=== PATIENT | female | born 1955 | race Caucasian/White ===

== ENCOUNTER 2019-09-06 14:05 | Outpatient (CLI) | payer MEDICARE, SELFPAY ==
--- NOTE | 2019-09-06 | XR_ITS ---
WS: [id number] SHOULDER LEFT TECHNIQUE: 3 views of the left shoulder CLINICAL INFORMATION: AFTERCARE FOLLOWING LEFT SHOULDER JOING REPLACEMENT SURGERY COMPARISON: None. FINDINGS: Normal acromioclavicular joint. Reversed left total shoulder arthroplasty. No dislocation. Hardware a ppears well seated. XR/XR shoulder LT min 2V* [id number] IMPRESSION: Reversed left total shoulder arthroplasty appears in good position.
== END 2019-09-06 14:06 | disposition home or self-care (01) ==
LOC: RADOUTREAD 09-09 07:34
PROVIDERS: Family Provider Family Medicine; Visit Provider Nurse Practitioner Family
DX: Z76.89 Persons encountering health services in other specified circumstances (principal)

== ENCOUNTER 2019-09-26 13:05 | Outpatient (CLI) | payer MEDICARE, SELFPAY ==
--- NOTE | 2019-09-26 | XR_ITS ---
WS: [id number] WRIST LEFT TECHNIQUE: 4 views of the left wrist CLINICAL INFORMATION: LEFT HAND/WRIST PAIN/SWELLING COMPARISON: None. FINDINGS: Diffuse osteopenia. 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 Mild narrowing of the radiocarpal j oint. Scaphoid appears normal in appearance. Slight irregularity distal radius suspicious for nondisp laced fracture. Recommend interval follow-up. XR/XR wrist LT w scaphoid [id number] IMPRESSION: Advanced osteopenia with slight irregularity distal radius near the radial styl oid suspicious for nondisplaced fracture. Recommend interval follow-up.
--- NOTE | 2019-09-26 | US_ITS ---
WS: [id number] LEFT UPPER EXTREMITY VENOUS ULTRASOUND EXAMINATION CLINICAL INFORMATION: LEFT HAND PAIN COMPARISON: None. FINDINGS: The left internal jugular, subclavian, and axillary veins are patent and free of thrombus. The visual ized left brachiocephalic veins is patent. The brachial, basilic, and cephalic veins are patent and c ompressible. US/ROR venous duplex UE LT IMPRESSION: No evidence of left upper extremity thrombus.
== END 2019-09-26 13:06 | disposition home or self-care (01) ==
LOC: RADOUTREAD 13:54
PROVIDERS: Family Provider Family Medicine; Visit Provider Nurse Practitioner Family
DX: Z76.89 Persons encountering health services in other specified circumstances (principal)

== ENCOUNTER 2021-08-10 14:24 | Outpatient (CLI) | payer MEDICARE, SELFPAY ==
--- NOTE | 2021-08-10 14:34 | XR_ITS ---
WS: [id number] Bone mineral density performed on a [employer], 08/10/2021 Clinical data: OSTEOPOROSIS, POST MENOPAUSAL Comparison study: DEXA scan, 08/16/2017. Findings: The first 4 lumbar vertebral bodies demonstrated the bone mineral density of 0.926 g/cm2 for a young adult T score of -2.1. The bone mineral density of the lumbar spine increased compared to the prior study. Measurement of the right hip reveals the bone mineral density of 0.778 g/sq cm for young adult T scor e of -1.8. The bone mineral density of the right hip increased compared to the prior study. XR/XR DEXA axial skeleton* [id number] Impression: Osteopenia of the lumbar spine and right hip.
== END 2021-08-10 14:25 | disposition home or self-care (01) ==
PROVIDERS: PCP Family Medicine; Visit Provider Nurse Practitioner Family
DX: M81.0 Age-related osteoporosis without current pathological fracture (principal); Z78.0 Asymptomatic menopausal state; M85.89 Other specified disorders of bone density and structure, multiple sites
CPT/HCPCS: 77080

== ENCOUNTER → 2021-11-29 10:49 | Outpatient (BNVA) | payer MEDICARE, SELFPAY | PROVIDERS: PCP Family Medicine; Referring Provider Nurse Practitioner Family; Visit Provider Otolaryngology | DX: R49.0 Dysphonia (principal); K21.9 Gastro-esophageal reflux disease without esophagitis; M26.623 Arthralgia of bilateral temporomandibular joint; J44.9 Chronic obstructive pulmonary disease, unspecified; K44.9 Diaphragmatic hernia without obstruction or gangrene; Z87.891 Personal history of nicotine dependence | CPT/HCPCS: 31575; 99204 ==

== ENCOUNTER → 2022-09-19 13:34 | Outpatient (BNVA) | payer MEDICARE, SELFPAY | PROVIDERS: PCP Family Medicine; Visit Provider Podiatrist Foot & Ankle Surgery | DX: M20.41 Other hammer toe(s) (acquired), right foot (principal); M20.42 Other hammer toe(s) (acquired), left foot; M20.12 Hallux valgus (acquired), left foot | CPT/HCPCS: 73630; 99204 ==

== ENCOUNTER → 2022-12-20 13:59 | Outpatient (BNVA) | payer MEDICARE, SELFPAY | PROVIDERS: PCP Family Medicine; Visit Provider Dermatology | DX: L50.8 Other urticaria (principal); L02.12 Furuncle of neck; D69.2 Other nonthrombocytopenic purpura; L81.4 Other melanin hyperpigmentation; D48.5 Neoplasm of uncertain behavior of skin; H16.229 Keratoconjunctivitis sicca, not specified as Sjogren's, unspecified eye; K11.7 Disturbances of salivary secretion | CPT/HCPCS: 99214 ==

== ENCOUNTER 2023-05-23 14:29 | Outpatient (CLI) | payer MEDICARE, SELFPAY ==
[2023-05-25 15:28] LABS: Anti-Double Strand DNA AB <1 IU/mL; Jo-1 Antibody <1.0 NEG AI (<1.0 NEG); SM/RNP Antibodies <1.0 NEG AI (<1.0 NEG); SS-B/LA IGG <1.0 NEG AI (<1.0 NEG); Scleroderma Ab(Scl-70) Ab <1.0 NEG AI (<1.0 NEG); Ss-A/Ro Igg <1.0 NEG AI (<1.0 NEG)
== END 2023-05-23 14:30 | disposition home or self-care (01) ==
PROVIDERS: PCP Nurse Practitioner Family; Visit Provider Dermatology
DX: Z01.89 Encounter for other specified special examinations (principal)
CPT/HCPCS: 36415; 86225; 86235; 99214

== ENCOUNTER 2024-02-01 15:42 | Outpatient (CLI) | payer MEDICARE, SELFPAY ==
--- NOTE | 2024-02-01 15:47 | CTR_ITS ---
PROCEDURE INFORMATION: Exam: CT Chest Without Contrast; Diagnostic Exam date and time: 02/01/2024 3:56 PM Age: 68 years old Clinical indication: Condition or disease; Lung condition and disease; Asthma; Additional info: Unspecified asthma, uncomplicated TECHNIQUE: Imaging protocol: Diagnostic computed tomography of the chest without contrast. Radiation optimization: All CT scans at this facility use at least one of these dose optimization techniques: automated exposure control; mA and/or kV adjustment per patient size (includes targeted exams where dose is matched to clinical indication); or iterative reconstruction. COMPARISON: CR XR chest 2V* [id number] 12/02/2020 3:41 PM RADIATION DOSE METRICS: Total DLP (mGy-cm): 482.27 FINDINGS: Lungs: 4 mm smoothly marginated nodule in the right lower lobe (4-32). Minimal atelectasis or fibrosis at each lung base. Pleural spaces: Unremarkable. No pneumothorax. No pleural effusion. Heart: Unremarkable. No cardiomegaly. No pericardial effusion. Lymph nodes: Visible central lymph nodes are not pathologically enlarged. Vasculature: Unremarkable. No aortic aneurysm. Diaphragm: Large hiatal hernia. Spleen: 12 cm sport aligned splenomegaly. Bones/joints: Bilateral shoulder replacement. Soft tissues: Unremarkable. CT/CT chest wo con [id number] IMPRESSION: 1. No acute intrathoracic pathology. 2. Large hiatal hernia. 3. 4 mm right lower lobe pulmonary nodule. For patients at low risk (minimal or absent history of smoking and of other known risk factors), no routine follow-up is indicated. For patients at high risk (history of smoking or of other known risk factors), consider optional CT Chest at 12 months. (Reference: Sudeep) References: Sudeep Benito et al. Guidelines for Management of Incidental Pulmonary Nodules Detected on CT Images: From the Fleischner Society 2017. Radiology. 2017;284(1):228-243.
== END 2024-02-01 15:43 | disposition home or self-care (01) ==
PROVIDERS: PCP Nurse Practitioner Family; Visit Provider Student in an Organized Health Care Education/Training Program
DX: J45.909 Unspecified asthma, uncomplicated (principal); R91.1 Solitary pulmonary nodule; K44.9 Diaphragmatic hernia without obstruction or gangrene; R16.1 Splenomegaly, not elsewhere classified; Z96.611 Presence of right artificial shoulder joint; Z96.612 Presence of left artificial shoulder joint
CPT/HCPCS: 71250

== ENCOUNTER → 2024-05-23 13:35 | Outpatient (BNVA) | payer MEDICARE, SELFPAY | PROVIDERS: PCP Nurse Practitioner Family; Visit Provider Nurse Practitioner Family | DX: L50.8 Other urticaria (principal); L40.8 Other psoriasis; L02.12 Furuncle of neck; S20.309A Unspecified superficial injuries of unspecified front wall of thorax, initial encounter; X58.XXXA Exposure to other specified factors, initial encounter; K11.7 Disturbances of salivary secretion; D69.2 Other nonthrombocytopenic purpura | CPT/HCPCS: 99214 ==

== ENCOUNTER → 2025-05-29 15:33 | Outpatient (BNVA) | payer MEDICARE, SELFPAY | PROVIDERS: PCP Nurse Practitioner Family; Visit Provider Nurse Practitioner Family | DX: L50.8 Other urticaria (principal); L40.8 Other psoriasis; L73.9 Follicular disorder, unspecified; L81.4 Other melanin hyperpigmentation | CPT/HCPCS: 99214 ==

== ENCOUNTER 2025-08-05 13:35 | Outpatient (CLI) | payer MEDICARE, SELFPAY ==
[2025-08-05 14:46] LABS: Hematocrit 41.6 % (36-47); Hemoglobin 13.20 g/dL (11.27-16.99); Mean Corpuscular HGB Conc 31.7 g/dL (30-55); Mean Corpuscular Hemoglobin 27.6 pg (27-33); Mean Corpuscular Volume 87.0 fl (85-98); Nucleated Red Blood Cells % 0 %; Platelet Count 243 10^3/cmm (157-399); Platelet Count 255 10^3/cmm (157-399); Red Blood Count 4.78 10^6/uL (3.85-5.65); White Blood Count 7.10 10^3/uL (3.29-11.43)
== END 2025-08-05 13:36 | disposition home or self-care (01) ==
PROVIDERS: PCP Nurse Practitioner Family; Visit Provider Allergy & Immunology Allergy
DX: J30.1 Allergic rhinitis due to pollen (principal); J30.89 Other allergic rhinitis; Z88.8 Allergy status to other drugs, medicaments and biological substances; J44.9 Chronic obstructive pulmonary disease, unspecified; J45.40 Moderate persistent asthma, uncomplicated
CPT/HCPCS: 36415; 82785; 85025; 85049; 86003